=== PATIENT | female | born 1940 | race Two or more races ===

== ENCOUNTER 2019-11-19 13:21 | Emergency (ER) | payer OTHER ==
[~2019-11-19] VITALS: Ht 152.4 cm; Wt 61.2 kg
[~2019-11-19 13:21] MED LIST: ASA81 MG; AVALIDE 150-12.1 TA1 PO; AVAPRO300 MG; CARDURA1 MG PO; CEFADROXIL500 MG PO; GLUCOPHAGE XR500 MG PO; HYDROCHLOROTHIA25 MG; NEURONTIN600 MG; NORVASC5 MG PO; PLAVIX75 MG PO; TENORMIN25 MG PO; TRAMADOL HCL50 MG PO; TRIPLE ANTIBIOT15 GM TP; [UNRECOGNIZED DRUG - OTHER] PO
[2019-11-19] MEDS ORDERED: LANTUS SOL100 UNIT/1 (13:40)
[2019-11-19] MEDS ORDERED: GLIPIZIDE ER5 MG (13:40)
== END 2019-11-19 16:42 | disposition home or self-care (01) ==
LOC: ER 13:21
DX: L50.8 Other urticaria (principal)